=== PATIENT | male | born 2000 | race Two or more races ===

== ENCOUNTER 2022-02-27 10:52 | Emergency (ER) | payer OTHER, MEDICAID ==
[~2022-02-27] VITALS: Ht 165.1 cm; Wt 57.6 kg
[2022-02-27 15:07] VITALS: BP 115/73
== END 2022-02-27 15:08 | disposition home or self-care (01) ==
LOC: ER 10:52
DX: F32.9 Major depressive disorder, single episode, unspecified (principal); Z76.0 Encounter for issue of repeat prescription